=== PATIENT | female | born 1995 | race Caucasian/White ===

== ENCOUNTER 2016-12-22 20:49 | Inpatient (IN) | payer BC ==
[2016-12-22] MEDS ORDERED: Ondansetron HCl/PF 4 MG/2 ML Vial ONE (21:05)
[2016-12-22] MEDS ORDERED: Ketorolac Tromethamine 30 MG/ML VIAL ONE (21:15)
[2016-12-22 21:42] LABS: #Lymphocytes 1.6 thou/uL (1.20-3.40); #Monocytes 0.8 thou/uL (0.11-0.59); #Neutrophils 17.3 thou/uL (1.40-6.50); %Basophils 0.2 % (0.0-1.0); %Eosinophils 0.2 % (0.0-10.0); %Lymphocytes 8.3 % (21.0-51.0); %Monocytes 3.9 % (0.0-10.0); Hematocrit 45.2 % (36.0-47.0); Mean Platelet Volume 7.6 fL (7.4-10.4); White Blood Cell (WBC) Count 19.8 thou/uL (4.8-10.8)
[2016-12-22 21:53] LABS: ALT (SGPT) 14 U/L (8-55); AST (SGOT) 22 U/L (5-34); Alkaline Phosphatase 75 U/L (40-150); Anion Gap 18 mmol/L (10-20); BUN (Urea Nitrogen) 10 mg/dL (7.0-18.7); Bilirubin, Total 1.1 mg/dL (0.2-1.2); Calc. Creatinine Clearance 0 mL/min (70-130); Calcium 9.7 mg/dL (7.8-10.44); Carbon Dioxide 18 mmol/L (22-29); Chloride 106 mmol/L (98-107); Estimated GFR-MDRD Greater than 90; Globulin 3.3 g/dL (2.4-3.5); Protein, Total 7.6 g/dL (6.0-8.3)
--- NOTE | 2016-12-22 22:12 | CT ---
BRAIN CT WITHOUT IV CONTRAST: 12/22/16 HISTORY: 21-year-old female with altered mental status with headache, vomiting, nose bleed, abrasions. There is focal right occipitoparietal scalp hematoma. There is some minimal subarachnoid hemorrhage and subdural hemorrhage in the right frontal region anteriorly as well as the anterior left frontal lobe as well. There is no significant mass effect or midline shift. Sinuses demonstrate some fluid i n the right maxillary and also in the right sphenoid sinus and left sphenoid sinus. The mastoids are clear. IMPRESSION: Minimal left frontal subdural and subarachnoid hemorrhage as well as very minimal right frontal subd ural and possibly minimal subarachnoid hemorrhage without significant mass effect or midline shift. Fluid within the sinuses. Right parieto-occipital scalp hematoma. Findings discussed with Dr. Menchaca in the ER at 10 p.m. Code [facility] POS: [facility]
[2016-12-22] MEDS ORDERED: Lorazepam 2 MG/ML VIAL ONE (22:25)
[2016-12-22] MEDS ORDERED: Diazepam 10 MG/2 ML SYRINGE ONE (22:25)
--- NOTE | 2016-12-22 22:27 | RAD ---
SEMIUPRIGHT PORTABLE CHEST 12/22/16 HISTORY: 21-year-old female with altered mental status and headache. Heart size is normal. The lungs are clear. IMPRESSION: No acute intrathoracic disease. POS: [facility]
[2016-12-22 22:28] LABS: Acetaminophen Less than 6.0 mcg/mL (10.0-30.0); Salicylate Less than 8.0 mg/dL (15.0-30.0)
--- NOTE | 2016-12-22 22:31 | CT ---
CERVICAL SPINE CT SCAN WITHOUT IV CONTRAST: 12/22/16 HISTORY: 21-year-old female with altered mental status and headache. No fracture, facet dislocation, or other acute process. IMPRESSION: Unremarkable cervical spine CT. POS: [facility]
[2016-12-22] MEDS ORDERED: Acetaminophen 500 MG TAB ONE (23:46)
[2016-12-23] MEDS ORDERED: traMADol HCl 50 MG TAB ONE (00:50)
[2016-12-23] MEDS ORDERED: Ondansetron ODT 4 MG TAB PO PRN (01:25)
[2016-12-23] MEDS ORDERED: Ondansetron HCl/PF 4 MG/2 ML Vial IVP PRN (01:25)
[2016-12-23] MEDS ORDERED: traMADol HCl 50 MG TAB PO PRN (01:25)
[2016-12-23] MEDS ORDERED: Scopolamine 1.5 mg/72 hour Patch TD SCH (01:25)
[2016-12-23] MEDS ORDERED: Dextrose 50% Abboject 50 ML SYRINGE SLOW IVP PRN (01:25)
[2016-12-23] MEDS ORDERED: Promethazine HCl 25 MG/ML VIAL IM PRN (01:25)
[2016-12-23] MEDS ORDERED: hydrALAZINE 20 MG/ML VIAL SLOW IVP PRN (01:25)
[2016-12-23] MEDS ORDERED: Dextrose 5% in Water 1,000 ML IV PRN (01:25)
[2016-12-23] MEDS: Sodium Chloride 0.9% 1,000 ML IV SCH ×2 (01:52→15:04)
[2016-12-23] MEDS: Acetaminophen 500 MG TAB PO SCH ×4 (01:58→18:27)
[2016-12-23 02:57] VITALS: BMI 27.3
--- NOTE | 2016-12-23 03:09 | HP ---
DATE OF ADMISSION: 12/22/2016 CHIEF COMPLAINT: Evaluation status post fall. HISTORY OF PRESENT ILLNESS: This is a 21-year-old female who presented to the ED complaining of hea dache that started tonight. The patient was found at [facility] vomiting, nose bleeding, and abrasions to the left knee and around the left thigh. The patient reported she fell, does not spec gonzalez how or where she fell to the ED doctor. Upon my arrival, the patient reported she had her dog i n her hand. She started to have an anxiety attack and then fell approximately 10 steps. She then i nformed me that she drove from [facility] to her boyfriend's house. At that point then she was bro ught to the ER. She reports a large amount of headache. PAST MEDICAL HISTORY: Includes asthma. PAST PSYCHIATRIC HISTORY: Includes anxiety and depression and also history of suicide attempts. REVIEW OF SYSTEMS: All 10 systems were reviewed, otherwise stated in the HPI were negative. PHYSICAL EXAMINATION: VITAL SIGNS: Blood pressure 173/90, heart rate 90, respiratory rate 18, O2 sat 100% on room air. GENERAL: No acute distress at this time. HEENT: Head: Normocephalic. She has left lateral orbit maxillary contusion and abrasion with swel ling and tenderness. Eyes: Equal, round, reactive, 3 mm bilaterally. NECK: No JVD, no masses. Trachea is midline. No cervical spine tenderness. PULMONARY: She is clear bilaterally via auscultation. CARDIOVASCULAR: S1, S2, regular rate and rhythm. ABDOMEN: Soft, nontender, nondistended. Pelvis is intact. LOWER EXTREMITIES: She has a left thigh with an abrasion on the anterior left thigh which extends a ll the way down to the knee and rupture anteriorly. NEUROLOGIC: She has GCS of 15. Alert and oriented x3. LABORATORY FINDINGS: Hematology: WBC 19.8, hemoglobin 15.4, hematocrit 45.2, platelet count 250. Chemistry: Sodium 138, potassium 3.5, chloride 106, bicarbonate 18, BUN 10, creatinine 0.74, glucos e 136. RADIOLOGY FINDINGS: CT of the head showed a right frontal subarachnoid subdural and left frontal dumont barachnoid. Cervical spine CT with no acute processes. ASSESSMENT: 1. Status post fall. 2. Subarachnoid subdural hemorrhage bilaterally. 3. Acute traumatic pain. 4. Anxiety. PLAN: Neurosurgical consultation will be obtained with Dr. Ballard and already spoke with Mercy Brewster, his PA, and she has already seen the patient at the bedside. The patient also will be admitt ed to the IMCU with q. 1 hour neuro checks. Repeat CT head in the morning. Head of bed greater neal n 30, q.1-hour neuro checks as stated above, manage her pain and initiate PT and OT tomorrow with Sp eech Therapy as well for cognitive evaluation. Dr. Ballard has been made aware of this patient, daugherty s agreed with the above plan.
[2016-12-23 05:07] LABS: #Lymphocytes 1.1 thou/uL (1.20-3.40); #Monocytes 0.4 thou/uL (0.11-0.59); #Neutrophils 11.5 thou/uL (1.40-6.50); %Eosinophils 0.1 % (0.0-10.0); %Lymphocytes 8.4 % (21.0-51.0); %Monocytes 3.3 % (0.0-10.0); Hematocrit 38.9 % (36.0-47.0); Red Blood Cell (RBC) Count 4.11 mill/uL (4.20-5.40)
[2016-12-23 05:32] LABS: Anion Gap 12 mmol/L (10-20); BUN (Urea Nitrogen) 8 mg/dL (7.0-18.7); Calc. Creatinine Clearance 164 mL/min (70-130); Calcium 8.9 mg/dL (7.8-10.44); Carbon Dioxide 20 mmol/L (22-29); Chloride 109 mmol/L (98-107); Estimated GFR-MDRD Greater than 90
--- NOTE | 2016-12-23 07:12 | CON ---
DATE OF CONSULTATION: 12/22/2016 HISTORY OF PRESENT ILLNESS: The patient is a 21-year-old female who presents to the emerg ency department in her POV for evaluation of headache, nausea, and vomiting which began this evening after falling down the stairs. She reports fall occurred several hours ago after she tripped and f ell over her dog. She reports that following her fall, she drove from [place] to [place] whe re her boyfriend resides. Upon arrival to [place], her boyfriend was concerned about her in creasing headache and vomiting, therefore, brought the patient to the emergency department. In the emergency department evaluated the patient with a head CT, CT of the cervical spine, and chest x-ray . CT head was notable for bilateral small subdural and subarachnoid traumatic hemorrhages. I am se eing the patient at the bedside. She is currently complaining of headache, some nausea, and some in termittent nosebleeds. PAST MEDICAL HISTORY: Notable for asthma. PAST SURGICAL HISTORY: The patient denies any surgical history. PAST PSYCHIATRIC HISTORY: Anxiety, depression. ALLERGIES: The patient is allergic to SULFA. FAMILY HISTORY: Noncontributory. REVIEW OF SYSTEMS: PHYSICAL EXAMINATION: CONSTITUTIONAL: The patient is anxious. VITAL SIGNS: BP 173/106, pulse is 90, respiration rate is 18, she is 100% on room air, temperature 97.9. HEAD: She has abrasions over the left orbit with mild tenderness to palpation over this region, als o contusion over this region. EYES: PERRLA. Extraocular movements are intact. Sclerae are white. ENT: The patient has dried blood to the nares, right hemotympanum. NECK: Supple, nontender to palpation. Free active range of motion. CARDIOVASCULAR: Regular rate and rhythm, breathing comfortably. RESPIRATORY: Symmetrical chest expansion. No respiratory distress. BACK: Nontender to palpation. Free active range of motion. MUSCULOSKELETAL: Free active range of motion of all extremities. No obvious deformities. She has an abrasion to her left thigh. NEUROLOGIC: A and O x4. No limb ataxia. Normal cranial nerve exam. GCS 15. ASSESSMENT: Closed head injury with acute small subarachnoid hemorrhage and subdural bilateral fron marko hemorrhages. PLAN: The patient will be admitted to the Trauma Service. We will consult. She will be admitted t o the [facility] for frequent neuro checks and close monitoring. Head of bed will be elevated to 30 degre es. We will plan to repeat head CT in the morning. I have discussed this plan with Dr. Ballard wh o is in agreement. Please reach out to the Neurosurgical Service for additional questions or concer ns.
--- NOTE | 2016-12-23 08:09 | CT ---
NONCONTRAST HEAD CT: Date: 12/23/16 COMPARISON: 12/22/16. HISTORY: Follow-up intracranial hemorrhage. FINDINGS: There is persistent increased density in the left frontal extra-axial space suggesting a small compo nent of subarachnoid, as well as subdural blood. Additionally, there is slight increased density alexey ng the anterior falx suggesting component of anterior parafalcine subdural blood. No new areas of he morrhage are appreciated. No evidence of hydrocephalus. Cortical vargas-white matter differentiation i s preserved, with the exception of a focal area in the left frontal lobe, likely representing an are a of nonhemorrhagic contusion. Continued surveillance is recommended. Posterior right scalp hematoma is noted. Calvarium is intact. There is partial opacification of the left and right sphenoid sinuses. IMPRESSION: 1. Persistent intracranial hemorrhage. 2. Focal area of decreased vargas-white matter differentiation, possibly due to nonhemorrhagic parenc hymal contusion. POS: [facility]
--- NOTE | 2016-12-23 08:26 | CT ---
MAXILLOFACIAL CT WITHOUT CONTRAST: Date: 12/23/16 HISTORY: Facial abrasions. Evaluate for fracture. COMPARISON: None. TECHNIQUE: Noncontrast maxillofacial bones CT performed in axial plane. Reformatted images are submitted for in terpretation. FINDINGS: Bilateral ocular lenses appropriately located. Both globes are intact. Retrobulbar fat is preserved. Symmetric attenuation of the optic nerve and ocular rectus muscles. Aerodigestive tract is patent. No mucosal abnormality. Adequate aeration of the mastoid air cells. Partial opacification of bilater al sphenoid sinuses. Minimal mucosal thickening in both maxillary sinuses. Zygomatic arches are inta ct. Pterygoid plates are intact. The osseous margins of the orbits and sinuses are also intact. IMPRESSION: No evidence of maxillofacial fracture. POS: [facility]
--- NOTE | 2016-12-23 08:36 | PRG ---
DATE OF SERVICE: 12/23/2016 SUBJECTIVE: Ms. Pan is doing well today. She is complaining of headache and some pain to her le ft face. She was neurologically stable overnight. She has been up to the bathroom without any diff iculty. PHYSICAL EXAMINATION: VITAL SIGNS: Blood pressure 101/60, pulse 59, respirations 18. She is afebrile. She has voided mu ltiple times. CHEST: Bilaterally clear. HEART: Regular rate and rhythm. ABDOMEN: Soft, nontender. EXTREMITIES: No obvious extremity deformities. LABORATORY DATA AND IMAGING: White blood cell count is 13 and hemoglobin is 12. Sodium 137, potass ium 3.8, and creatinine 0.64. CT brain this morning, persistent small intracranial hemorrhage. ASSESSMENT: Subdural hematoma, subarachnoid hemorrhage, stable. PLAN: Neurosurgery to see plans for them whether she needs to continue observation.
[2016-12-23] MEDS: Famotidine 20 MG TAB PO SCH ×2 (09:01→20:49)
[2016-12-24] MEDS: Acetaminophen 500 MG TAB PO SCH ×2 (02:08→08:07)
[2016-12-24] MEDS: traMADol HCl 50 MG TAB PO PRN ×2 (02:09→08:07)
[2016-12-24] MEDS: Sodium Chloride 0.9% 1,000 ML IV SCH (05:12)
[2016-12-24] MEDS: Famotidine 20 MG TAB PO SCH (08:07)
[2016-12-24 12:34] VITALS: BP 116/79; TEMP 97.8
== END 2016-12-24 13:15 | disposition home or self-care (01) | DRG 87 ==
LOC: ERS 20:49 → IMCU/EMU 23:20 → SURG B 12-23 15:22
PROVIDERS: ADMIT Surgery; ATTEND Surgery
DX: S06.6X0A Traumatic subarachnoid hemorrhage without loss of consciousness, initial encounter (principal); F32.9 Major depressive disorder, single episode, unspecified; W10.9XXA Fall (on) (from) unspecified stairs and steps, initial encounter; F41.9 Anxiety disorder, unspecified; Z88.2 Allergy status to sulfonamides; S06.5X0A Traumatic subdural hemorrhage without loss of consciousness, initial encounter; S70.312A Abrasion, left thigh, initial encounter; S80.212A Abrasion, left knee, initial encounter; S00.81XA Abrasion of other part of head, initial encounter
CPT/HCPCS: 36415; 70450; 70486; 71010; 72125; 80048; 80053; 80307; 84702; 85025; 93005; 96361; 96374; 96375; G0390; G8978-GP-CJ; G8979-GP-CJ; G8980-GP-CJ; G9162-GN-CH; G9162-GN-CI; G9163-GN-CH; J1885; J2060; J2405; J3360